=== PATIENT | female | born 1965 | race Two or more races ===

== ENCOUNTER 2020-05-10 09:08 | Inpatient (IN) | payer MEDICAID ==
[~2020-05-10] VITALS: Ht 162.6 cm; Wt 105.0 kg
[2020-05-10] MEDS ORDERED: methylPREDNISolone SOD SUCC 125 MG/2 ML VL IV ONE (10:30)
[2020-05-10 11:41] LABS: Chloride 100 mmol/L (98-107); Potassium 3.3 mmol/L (3.5-5.1); Sodium 132 mmol/L (136-145)
[2020-05-10 11:45] LABS: Basophils # (auto) 0 10 ^3/uL (0-0.2); Basophils % (auto) 0.2 % (0.0-2.0); Eosinophils # (auto) 0 10 ^3/uL (0-0.8); Hematocrit 47.1 % (36.0-46.0); Hemoglobin 16.6 g/dL (12.2-16.2); Lymphocytes # (auto) 0.7 10 ^3/uL (0.4-5.4); Lymphocytes % (auto) 13.4 % (10.0-50.0); Mean Corpuscular Hemoglobin 30.7 pg (28.0-32.0); Mean Corpuscular Hgb Conc. 35.3 g/dL (32.0-36.0); Mean Corpuscular Volume 86.9 fL (80.0-100.0); Monocytes # (auto) 0.6 10 ^3/uL (0-1.3); Monocytes % (auto) 10.5 % (0.0-12.0); Neutrophils # (auto) 4.2 10 ^3/uL (1.6-8.6); Neutrophils % (auto) 75.9 % (37.0-80.0); Nucleated Red Blood Cells % 0.9 %; Platelet Count (auto) 205 10^3/uL (140-450); Red Blood Cells 5.42 10^6/uL (4.0-5.20); White Blood Cell 5.5 10^3/uL (4.4-10.8)
[2020-05-10 11:52] LABS: Alanine Aminotransferase 138 U/L (13-56); Albumin 3.4 g/dL (3.4-5.0); Alkaline Phosphatase 88 U/L (45-117); Anion Gap 6 (5-15); Aspartate Aminotransferase 124 U/L (15-37); BUN/Creatinine Ratio 15.7; Bilirubin, Total 0.4 mg/dL (0.2-1.0); Blood Urea Nitrogen 13 mg/dL (7-18); CRP High Sensitivity 4.75 mg/dL (< 0.3); Calcium 8.1 mg/dL (8.5-10.1); Carbon Dioxide 26 mmol/L (21-32); GFR African American 92 mL/min; GFR Non-African American 76 mL/min; Glucose 139 mg/dL (74-106); Total Protein 8.7 g/dL (6.4-8.2)
[2020-05-10] MEDS ORDERED: AZITHROMYCIN 500MG/ 250ML 250 ML IV ONE (14:15)
[2020-05-10] MEDS ORDERED: ALBUTEROL SULF HFA 90MCG INH 200DOSE IN PRN (22:30)
[2020-05-10] MEDS ORDERED: ONDANSETRON HCL 4 MG/2 ML VIAL IV PRN (22:30)
[2020-05-10] MEDS ORDERED: DOCUSATE SOD 100 MG CAP PO PRN (22:30)
[2020-05-10] MEDS ORDERED: NITROGLYCERIN 0.4 MG SL TAB SL PRN (22:30)
[2020-05-10] MEDS ORDERED: HYDROcodone-ACET 5/325MG TAB PO PRN (22:30)
[2020-05-10] MEDS ORDERED: MORPHINE SULF INJ 2 MG/ML SYRINGE 1ML IV PRN (22:30)
[2020-05-10] MEDS ORDERED: ACETAMINOPHEN 500 MG TAB PO PRN (22:30)
[2020-05-10] MEDS ORDERED: POTASSIUM CHL 20 Meq TABLET PO ONE (22:45)
[2020-05-11 08:00] LABS: Basophils # (auto) 0 10 ^3/uL (0-0.2); Basophils % (auto) 0.1 % (0.0-2.0); Eosinophils # (auto) 0 10 ^3/uL (0-0.8); Hematocrit 46.9 % (36.0-46.0); Hemoglobin 16.3 g/dL (12.2-16.2); Lymphocytes # (auto) 0.7 10 ^3/uL (0.4-5.4); Lymphocytes % (auto) 14.1 % (10.0-50.0); Mean Corpuscular Hemoglobin 30.2 pg (28.0-32.0); Mean Corpuscular Hgb Conc. 34.8 g/dL (32.0-36.0); Mean Corpuscular Volume 86.6 fL (80.0-100.0); Monocytes # (auto) 0.3 10 ^3/uL (0-1.3); Monocytes % (auto) 6.4 % (0.0-12.0); Neutrophils # (auto) 3.7 10 ^3/uL (1.6-8.6); Neutrophils % (auto) 79.4 % (37.0-80.0); Nucleated Red Blood Cells % 0.2 %; Platelet Count (auto) 221 10^3/uL (140-450); Red Blood Cells 5.41 10^6/uL (4.0-5.20); Red Cell Distribution Width 12.6 % (11.8-14.3); White Blood Cell 4.7 10^3/uL (4.4-10.8)
[2020-05-11 08:22] LABS: Albumin 3.4 g/dL (3.4-5.0); BUN/Creatinine Ratio 23.3; Calcium 8.3 mg/dL (8.5-10.1); Magnesium 2.4 mg/dL (1.6-2.6); Potassium 3.5 mmol/L (3.5-5.1)
[2020-05-11 08:25] LABS: Bilirubin, Total 0.5 mg/dL (0.2-1.0); Total Protein 8.6 g/dL (6.4-8.2)
[2020-05-11] MEDS ORDERED: PANTOPRAZOLE 40 MG/10 ML VIAL INJ IV SCH (10:00)
[2020-05-11] MEDS ORDERED: ENOXAPARIN SOD 40 MG/0.4 ML SYRINGE SC SCH ×2 (10:00→22:00)
[2020-05-11] MEDS ORDERED: BUDESONIDE (INHALATION) 180 MCG IH IN SCH (10:00)
[2020-05-11] MEDS ORDERED: DexAMETHasone SOD PHOS 10MG/1ML VIAL INJ IV SCH (10:00)
[2020-05-11] MEDS ORDERED: ZINC SULFATE 220mg CAP or TAB PO SCH (10:00)
[2020-05-11] MEDS ORDERED: CHOLECALCIFEROL (VITD3) 2,000 UNIT CAP PO SCH (10:00)
[2020-05-11] MEDS ORDERED: MULTIPLE VITAMIN TAB PO SCH (10:00)
[2020-05-11] MEDS ORDERED: DOXYCYCLINE 100MG/250ML 250 ML IV SCH (10:00)
[2020-05-11] MEDS ORDERED: ASCORBIC ACID 1,000 MG TAB PO SCH (10:00)
[2020-05-11] MEDS ORDERED: FUROSEMIDE 20 MG/2 ML VIAL IV ONE (17:15)
[2020-05-11 20:21] VITALS: BP 142/78
[2020-05-11] MEDS: BUDESONIDE (INHALATION) 180 MCG IH IN SCH (22:00)
[2020-05-11] MEDS ORDERED: ATORVASTATIN 20 MG TAB PO SCH (22:00)
[2020-05-11] MEDS ORDERED: ACETAMINOPHEN 500 MG TAB PO PRN (22:30)
[2020-05-11] MEDS ORDERED: ONDANSETRON HCL 4 MG/2 ML VIAL IV PRN (22:45)
[2020-05-11] MEDS ORDERED: NITROGLYCERIN 0.4 MG SL TAB SL PRN (22:45)
[2020-05-11] MEDS ORDERED: MORPHINE SULF INJ 2 MG/ML SYRINGE 1ML IV PRN (22:45)
[2020-05-11] MEDS ORDERED: DOCUSATE SOD 100 MG CAP PO PRN (22:45)
[2020-05-11] MEDS: DOXYCYCLINE 100MG/250ML 250 ML IV SCH (23:10)
[2020-05-11] MEDS: ATORVASTATIN 20 MG TAB PO SCH (23:11)
[2020-05-12] MEDS ORDERED: FUROSEMIDE 20 MG/2 ML VIAL IV SCH (06:00)
[2020-05-12] MEDS: FUROSEMIDE 20 MG/2 ML VIAL IV SCH ×2 (06:00→18:19)
[2020-05-12 08:00] VITALS: BP 108/70
[2020-05-12] MEDS ORDERED: ASPirin 81 mg TAB PO SCH (10:00)
[2020-05-12] MEDS ORDERED: POTASSIUM CHL 20 Meq TABLET PO SCH (10:00)
[2020-05-12] MEDS: PANTOPRAZOLE 40 MG/10 ML VIAL INJ IV SCH (10:39)
[2020-05-12] MEDS: DexAMETHasone SOD PHOS 10MG/1ML VIAL INJ IV SCH (10:39)
[2020-05-12] MEDS: ZINC SULFATE 220mg CAP or TAB PO SCH (10:40)
[2020-05-12] MEDS: ASPirin 81 mg TAB PO SCH (10:40)
[2020-05-12] MEDS: POTASSIUM CHL 20 Meq TABLET PO SCH (10:41)
[2020-05-12] MEDS: MULTIPLE VITAMIN TAB PO SCH (10:41)
[2020-05-12] MEDS: ASCORBIC ACID 1,000 MG TAB PO SCH (10:42)
[2020-05-12] MEDS: CHOLECALCIFEROL (VITD3) 2,000 UNIT CAP PO SCH (10:42)
[2020-05-12] MEDS: DOXYCYCLINE 100MG/250ML 250 ML IV SCH ×2 (10:48→21:40)
[2020-05-12] MEDS: ENOXAPARIN SOD 40 MG/0.4 ML SYRINGE SC SCH ×2 (10:50→21:39)
[2020-05-12] MEDS ORDERED: REMDESIVIR PER PHARMACY 0 ML IV SCH (11:30)
[2020-05-12] MEDS: BUDESONIDE (INHALATION) 180 MCG IH IN SCH ×2 (12:00→21:25)
[2020-05-12] MEDS ORDERED: REMDESIVIR 200 MG in NS 210ml LOADING DOSE ADULT IV ONE (15:00)
[2020-05-12 16:19] VITALS: BP 124/75
[2020-05-12] MEDS: ATORVASTATIN 20 MG TAB PO SCH (21:38)
[2020-05-12] MEDS: ACETAMINOPHEN 500 MG TAB PO PRN (21:39)
[2020-05-13 00:26] VITALS: BP 130/75
[2020-05-13] MEDS: FUROSEMIDE 20 MG/2 ML VIAL IV SCH ×3 (06:00→18:30)
[2020-05-13 07:54] LABS: Potassium 3.4 mmol/L (3.5-5.1)
[2020-05-13 08:00] VITALS: BP 144/85
[2020-05-13 08:06] LABS: Albumin 3.5 g/dL (3.4-5.0); BUN/Creatinine Ratio 45.6; Bilirubin, Total 0.6 mg/dL (0.2-1.0); Calcium 8.6 mg/dL (8.5-10.1); Total Protein 8.6 g/dL (6.4-8.2)
[2020-05-13] MEDS: MULTIPLE VITAMIN TAB PO SCH (10:15)
[2020-05-13] MEDS: PANTOPRAZOLE 40 MG/10 ML VIAL INJ IV SCH (10:16)
[2020-05-13] MEDS: POTASSIUM CHL 20 Meq TABLET PO SCH (10:16)
[2020-05-13] MEDS: ASPirin 81 mg TAB PO SCH (10:16)
[2020-05-13] MEDS: DexAMETHasone SOD PHOS 10MG/1ML VIAL INJ IV SCH (10:16)
[2020-05-13] MEDS: ZINC SULFATE 220mg CAP or TAB PO SCH (10:16)
[2020-05-13] MEDS: BUDESONIDE (INHALATION) 180 MCG IH IN SCH ×2 (10:23→19:35)
[2020-05-13] MEDS: ASCORBIC ACID 1,000 MG TAB PO SCH (10:24)
[2020-05-13] MEDS: DOXYCYCLINE 100MG/250ML 250 ML IV SCH ×2 (10:24→21:27)
[2020-05-13] MEDS: ENOXAPARIN SOD 40 MG/0.4 ML SYRINGE SC SCH ×2 (10:25→21:28)
[2020-05-13] MEDS: CHOLECALCIFEROL (VITD3) 2,000 UNIT CAP PO SCH (10:25)
[2020-05-13] MEDS: REMDESIVIR 100 MG in SODIUM CHL 0.9% 250 ML IV SCH (15:40)
[2020-05-13 16:00] VITALS: BP_SYST 142; BP_DIAS 87; BP_DIAS 89
[2020-05-13] MEDS: ATORVASTATIN 20 MG TAB PO SCH (21:27)
[2020-05-13] MEDS: ACETAMINOPHEN 500 MG TAB PO PRN (23:36)
[2020-05-14] VITALS: BP 126/72
[2020-05-14 02:00] VITALS: BP 126/72
[2020-05-14] MEDS: FUROSEMIDE 20 MG/2 ML VIAL IV SCH ×2 (06:16→17:41)
[2020-05-14 06:58] LABS: Basophils # (auto) 0 10 ^3/uL (0-0.2); Basophils % (auto) 0.1 % (0.0-2.0); Eosinophils # (auto) 0 10 ^3/uL (0-0.8); Hemoglobin 16.3 g/dL (12.2-16.2); Lymphocytes # (auto) 0.9 10 ^3/uL (0.4-5.4); Lymphocytes % (auto) 10.3 % (10.0-50.0); Mean Corpuscular Hemoglobin 30.4 pg (28.0-32.0); Mean Corpuscular Hgb Conc. 34.7 g/dL (32.0-36.0); Mean Corpuscular Volume 87.4 fL (80.0-100.0); Monocytes # (auto) 0.9 10 ^3/uL (0-1.3); Monocytes % (auto) 11.2 % (0.0-12.0); Neutrophils # (auto) 6.6 10 ^3/uL (1.6-8.6); Neutrophils % (auto) 78.4 % (37.0-80.0); Nucleated Red Blood Cells % 0.2 %; Platelet Count (auto) 288 10^3/uL (140-450); Red Blood Cells 5.38 10^6/uL (4.0-5.20); Red Cell Distribution Width 12.7 % (11.8-14.3); White Blood Cell 8.5 10^3/uL (4.4-10.8)
[2020-05-14 07:22] LABS: Albumin 3.2 g/dL (3.4-5.0); Calcium 8.6 mg/dL (8.5-10.1); Potassium 3.2 mmol/L (3.5-5.1)
[2020-05-14 07:26] LABS: BUN/Creatinine Ratio 39.7; Bilirubin, Total 0.8 mg/dL (0.2-1.0)
[2020-05-14 08:00] VITALS: BP 135/82
[2020-05-14] MEDS ORDERED: ASPirin 81 mg TAB PO ONE (09:30)
[2020-05-14] MEDS ORDERED: HEPARIN 1,000 UNITS/ml 1ML VIAL IV ONE (09:30)
[2020-05-14] MEDS: ASPirin 81 mg TAB PO SCH (09:40)
[2020-05-14] MEDS: DexAMETHasone SOD PHOS 10MG/1ML VIAL INJ IV SCH (09:40)
[2020-05-14] MEDS: DOXYCYCLINE 100MG/250ML 250 ML IV SCH ×2 (09:40→22:13)
[2020-05-14] MEDS: PANTOPRAZOLE 40 MG/10 ML VIAL INJ IV SCH (09:40)
[2020-05-14] MEDS: ZINC SULFATE 220mg CAP or TAB PO SCH (09:41)
[2020-05-14] MEDS: ASCORBIC ACID 1,000 MG TAB PO SCH (09:41)
[2020-05-14] MEDS: ENOXAPARIN SOD 40 MG/0.4 ML SYRINGE SC SCH (09:41)
[2020-05-14] MEDS: MULTIPLE VITAMIN TAB PO SCH (09:41)
[2020-05-14] MEDS: CHOLECALCIFEROL (VITD3) 2,000 UNIT CAP PO SCH (09:41)
[2020-05-14] MEDS: POTASSIUM CHL 20 Meq TABLET PO SCH ×2 (09:41→22:01)
[2020-05-14] MEDS: BUDESONIDE (INHALATION) 180 MCG IH IN SCH ×2 (10:00→21:34)
[2020-05-14] MEDS: ALBUTEROL SULF HFA 90MCG INH 200DOSE IN PRN (10:45)
[2020-05-14] MEDS ORDERED: CHOLECALCIFEROL (VITD3) 2,000 UNIT CAP PO ONE (14:30)
[2020-05-14] MEDS ORDERED: POTASSIUM CHL 20 Meq TABLET PO ONE (14:30)
[2020-05-14] MEDS: REMDESIVIR 100 MG in SODIUM CHL 0.9% 250 ML IV SCH (14:37)
[2020-05-14 16:00] VITALS: BP 110/69
[2020-05-14 17:13] LABS: Urine Bacteria FEW /hpf (None Seen); Urine Blood Negative /uL (Negative); Urine Mucus FEW (None Seen); Urine Specific Gravity 1.026 (1.001-1.035); Urine WBC 1 /hpf (0 - 5)
[2020-05-14] MEDS: HYDROcodone-ACET 5/325MG TAB PO PRN (22:03)
[2020-05-14] MEDS: ENOXAPARIN SOD 100 MG/1 ML SYRINGE SC SCH (22:04)
[2020-05-15] VITALS: BP 108/54
[2020-05-15 05:29] VITALS: BP 134/73
[2020-05-15] MEDS: FUROSEMIDE 20 MG/2 ML VIAL IV SCH ×2 (06:02→17:06)
[2020-05-15] MEDS: BUDESONIDE (INHALATION) 180 MCG IH IN SCH ×2 (07:40→19:55)
[2020-05-15 08:00] VITALS: BP 119/70
[2020-05-15] MEDS: ALBUTEROL SULF HFA 90MCG INH 200DOSE IN PRN ×2 (08:36→19:56)
[2020-05-15 09:02] LABS: Potassium 3.3 mmol/L (3.5-5.1)
[2020-05-15] MEDS: DexAMETHasone SOD PHOS 10MG/1ML VIAL INJ IV SCH ×2 (09:18→22:08)
[2020-05-15] MEDS: MULTIPLE VITAMIN TAB PO SCH (09:18)
[2020-05-15] MEDS: ENOXAPARIN SOD 100 MG/1 ML SYRINGE SC SCH ×2 (09:18→22:08)
[2020-05-15] MEDS: FAMOTIDINE (10MG/ML) 2ML VL IV SCH (09:18)
[2020-05-15] MEDS: ASPirin 81 mg TAB PO SCH (09:19)
[2020-05-15] MEDS: ASCORBIC ACID 1,000 MG TAB PO SCH (09:19)
[2020-05-15] MEDS: DOXYCYCLINE 100MG/250ML 250 ML IV SCH ×2 (09:19→22:09)
[2020-05-15] MEDS: ZINC SULFATE 220mg CAP or TAB PO SCH (09:19)
[2020-05-15] MEDS: CHOLECALCIFEROL (VITD3) 2,000 UNIT CAP PO SCH (09:20)
[2020-05-15] MEDS: POTASSIUM CHL 20 Meq TABLET PO SCH ×2 (09:20→22:09)
[2020-05-15 10:08] LABS: Albumin 3.2 g/dL (3.4-5.0); BUN/Creatinine Ratio 26.2; Bilirubin, Total 0.8 mg/dL (0.2-1.0); Calcium 8.5 mg/dL (8.5-10.1)
[2020-05-15] MEDS ORDERED: POTASSIUM CHL 20 Meq TABLET PO ONE (12:45)
[2020-05-15 15:30] VITALS: BP 114/68
[2020-05-15 15:45] VITALS: BP 132/72
[2020-05-15] MEDS: REMDESIVIR 100 MG in SODIUM CHL 0.9% 250 ML IV SCH (15:45)
[2020-05-15 16:36] VITALS: BP 124/65
[2020-05-15] MEDS: ACETAMINOPHEN 500 MG TAB PO PRN (23:34)
[2020-05-16] VITALS: BP_SYST 113; BP_SYST 132; BP_DIAS 76; BP_DIAS 77
[2020-05-16] MEDS: FUROSEMIDE 20 MG/2 ML VIAL IV SCH ×2 (06:02→16:58)
[2020-05-16] MEDS: ALBUTEROL SULF HFA 90MCG INH 200DOSE IN PRN ×2 (07:21→21:20)
[2020-05-16] MEDS: BUDESONIDE (INHALATION) 180 MCG IH IN SCH ×2 (07:21→21:20)
[2020-05-16 08:00] VITALS: BP 120/74
[2020-05-16 08:47] LABS: Albumin 3.2 g/dL (3.4-5.0); BUN/Creatinine Ratio 23.2; Bilirubin, Total 0.9 mg/dL (0.2-1.0); Calcium 9.1 mg/dL (8.5-10.1); Total Protein 8.7 g/dL (6.4-8.2)
[2020-05-16] MEDS: ASPirin 81 mg TAB PO SCH (10:08)
[2020-05-16] MEDS: DexAMETHasone SOD PHOS 10MG/1ML VIAL INJ IV SCH ×2 (10:08→22:04)
[2020-05-16] MEDS: FAMOTIDINE (10MG/ML) 2ML VL IV SCH (10:08)
[2020-05-16] MEDS: ZINC SULFATE 220mg CAP or TAB PO SCH (10:08)
[2020-05-16] MEDS: POTASSIUM CHL 20 Meq TABLET PO SCH ×2 (10:08→22:03)
[2020-05-16] MEDS: MULTIPLE VITAMIN TAB PO SCH (10:08)
[2020-05-16] MEDS: ASCORBIC ACID 1,000 MG TAB PO SCH (10:08)
[2020-05-16] MEDS: ENOXAPARIN SOD 100 MG/1 ML SYRINGE SC SCH (10:08)
[2020-05-16] MEDS: CHOLECALCIFEROL (VITD3) 2,000 UNIT CAP PO SCH (10:11)
[2020-05-16] MEDS ORDERED: TEMAZEPAM 15 MG CAP PO PRN (13:30)
[2020-05-16 14:00] VITALS: BP 106/69
[2020-05-16] MEDS: REMDESIVIR 100 MG in SODIUM CHL 0.9% 250 ML IV SCH (15:19)
[2020-05-16 15:20] VITALS: BP 127/69
[2020-05-16 15:35] VITALS: BP 131/74
[2020-05-16 16:19] VITALS: BP 123/57
[2020-05-16] MEDS ORDERED: methylPREDNISolone SOD SUCC 40 MG/ML VL IV ONE (20:00)
[2020-05-16] MEDS ORDERED: ACETAMINOPHEN 650 mg PER 20.3 mL UD PO ONE (20:00)
[2020-05-16] MEDS ORDERED: diphenhdrAMINE HCL 50 MG/1 ML VL IV ONE (20:00)
[2020-05-16] MEDS ORDERED: TOCILIZUMAB 400 MG in SODIUM CHL 0.9% 80 ML IV ONE (20:30)
[2020-05-16] MEDS: HYDROcodone-ACET 5/325MG TAB PO PRN (20:45)
[2020-05-16] MEDS: ENOXAPARIN SOD 80 MG/0.8ML SYRINGE SC SCH (22:04)
[2020-05-16] MEDS ORDERED: guaiFENesin-DM 100/10mg/5ml SYR PO PRN (22:30)
[2020-05-17] VITALS: BP 113/77
[2020-05-17 01:08] VITALS: BP 148/72
[2020-05-17 01:27] VITALS: BP 116/68
[2020-05-17] MEDS ORDERED: TEMAZEPAM 15 MG CAP PO ONE (02:15)
[2020-05-17 03:37] VITALS: BP 113/90
[2020-05-17] MEDS ORDERED: LORazepam 0.5 MG TAB PO PRN (05:15)
[2020-05-17] MEDS: FUROSEMIDE 20 MG/2 ML VIAL IV SCH (05:26)
[2020-05-17 08:00] VITALS: BP 105/66
[2020-05-17] MEDS: FAMOTIDINE (10MG/ML) 2ML VL IV SCH (08:58)
[2020-05-17] MEDS: DexAMETHasone SOD PHOS 10MG/1ML VIAL INJ IV SCH (08:58)
[2020-05-17] MEDS: ENOXAPARIN SOD 80 MG/0.8ML SYRINGE SC SCH (08:59)
[2020-05-17] MEDS: ACETAMINOPHEN 500 MG TAB PO PRN (08:59)
[2020-05-17] MEDS: ZINC SULFATE 220mg CAP or TAB PO SCH (08:59)
[2020-05-17] MEDS: ASCORBIC ACID 1,000 MG TAB PO SCH (09:00)
[2020-05-17] MEDS: CHOLECALCIFEROL (VITD3) 2,000 UNIT CAP PO SCH (09:00)
[2020-05-17] MEDS: ASPirin 81 mg TAB PO SCH (09:01)
[2020-05-17] MEDS: POTASSIUM CHL 20 Meq TABLET PO SCH (09:01)
[2020-05-17] MEDS: MULTIPLE VITAMIN TAB PO SCH (09:02)
[2020-05-17] MEDS ORDERED: ACETAMINOPHEN 650 mg PER 20.3 mL UD PO ONE (10:00)
[2020-05-17] MEDS ORDERED: diphenhdrAMINE HCL 50 MG/1 ML VL IV ONE (10:00)
[2020-05-17] MEDS ORDERED: TOCILIZUMAB 400 MG in SODIUM CHL 0.9% 80 ML IV ONE (10:30)
[2020-05-17] MEDS ORDERED: ROCURONIUM 10MG/ML 10ML VIAL IV ONE (12:43)
[2020-05-17] MEDS ORDERED: ETOMIDATE (2MG/ML) 20ML VIAL IV ONE (12:44)
[2020-05-17] MEDS ORDERED: SUCCINYLCHOLINE CHLORIDE 20 MG/ML 10ML VIAL IV ONE (12:44)
[2020-05-17] MEDS ORDERED: SODIUM BICARBONATE 8.4% INJ 50ML SYRINGE IV ONE (17:36)
[2020-05-17] MEDS ORDERED: DOPamine 1600mCg/ml 400MG/250ml NSorD5 KIT/BAG IV ONE (17:36)
[2020-05-17] MEDS ORDERED: EPINEPHrine HCL 1 MG/10 ML SYRG IV ONE (17:36)
== END 2020-05-17 13:19 | DRG 720 ==
LOC: ER 09:08 → TELE 09:09 → TELE-WESTW 05-11 20:23
PROVIDERS: ADMIT Nurse Practitioner Family; ATTEND Internal Medicine
PROC: XW033E5 Introduction of Remdesivir Anti-infective into Peripheral Vein, Percutaneous Approach, New Technology Group 5 (ICD-10-PCS; 2020-05-12)
PROC: XW033H5 Introduction of Tocilizumab into Peripheral Vein, Percutaneous Approach, New Technology Group 5 (ICD-10-PCS; 2020-05-16)
PROC: XW13325 Transfusion of Convalescent Plasma (Nonautologous) into Peripheral Vein, Percutaneous Approach, New Technology Group 5 (ICD-10-PCS; principal; 2020-05-17)
PROC: 5A09357 Assistance with Respiratory Ventilation, Less than 24 Consecutive Hours, Continuous Positive Airway Pressure (ICD-10-PCS; 2020-05-17)
PROC: 5A12012 Performance of Cardiac Output, Single, Manual (ICD-10-PCS; 2020-05-17)
DX: A41.89 Other specified sepsis (principal); U07.1 COVID-19; J12.89 Other viral pneumonia; J96.01 Acute respiratory failure with hypoxia; E87.6 Hypokalemia; E66.01 Morbid (severe) obesity due to excess calories; I46.9 Cardiac arrest, cause unspecified; Z83.3 Family history of diabetes mellitus; Z90.710 Acquired absence of both cervix and uterus; Z68.39 Body mass index [BMI] 39.0-39.9, adult; E11.65 Type 2 diabetes mellitus with hyperglycemia
CPT/HCPCS: 36415; 36600; 71045; 80053; 81001; 82306; 82728; 82805; 83036; 83605; 83615; 83735; 84443; 84484; 85025; 85379; 86141; 86850; 86900; 86901; 87040; 87426; 93005; 94640; 94660; 96365; 96367; 96372; 96375; C9113; G0378; J0330; J1100; J2405; J3490